=== PATIENT | male | born 1955 ===

== ENCOUNTER 2020-11-11 23:13 | Emergency (ER) | payer SELFPAY ==
[~2020-11-11] VITALS: Ht 170.2 cm; Wt 190.0 kg
[2020-11-11 23:25] VITALS: BP 190/119
== END 2020-11-11 23:41 | disposition home or self-care (01) ==
LOC: ED 23:33
DX: F41.1 Generalized anxiety disorder (principal); F15.10 Other stimulant abuse, uncomplicated; I10 Essential (primary) hypertension; Z87.891 Personal history of nicotine dependence
CPT/HCPCS: 99283; 99406